=== PATIENT | female | born 1950 | race Caucasian/White ===

== ENCOUNTER → 2017-12-29 09:37 | Outpatient (CLI) | payer MEDICARE, OTHER ==
[2016-01-20 09:55] VITALS: BMI 26.9
[~2017-12-29 09:37] MED LIST: EPIFOAM10 GM TOPICAL; IBUPROFEN600 MG PO; PERCOCET 5-3251 TAB PO; TIROSINT13 MCG PO; TUCKS MEDICATE1 EACH TOPICAL; XALATAN 0.0052.5 ML EACH EYE
== END | disposition home or self-care (01) ==
LOC: D.RAD 09:37
DX: M54.5 Low back pain (principal); M25.562 Pain in left knee